=== PATIENT | male | born 1980 | race Caucasian/White ===

== ENCOUNTER 2016-06-11 18:11 | Emergency (ER) | payer MEDICARE ==
--- NOTE | 2016-06-11 18:33 | ERPHSYRPT ---
- History of Present Illness Time Seen by Provider: 06/11/16 18:27 Source: patient Exam Limitations: no limitations Patient Subjective Stated Complaint: PT REPORTS RASH BEGINNING 2 DAYS AGO- REPORTS ITCHING-DENIES RASH IS SPREADING-DENIES SOB Triage Nursing Assessment: PT PINK WARM ET DRY-RASH NOTED-NO ITCHING NOTED DURING TRIAGE Physician History: The patient is a 36-year-old male with his girlfriend complaining that a rash has developed on the left side of his neck 2 days ago. He says he was at a friend's house with a have a lot of cats and dogs in the house and shortly after leaving this itchy rash began. He took 2 Benadryl's last night to control the itching. He denies shortness of breath. He transfer text Timing/Duration: yesterday Quality: itchy Severity: mild Location: other (neck) Possible Causes: exposure to allergen Modifying Factors: Improves With: antihistamine Associated Symptoms: rash, No difficulty breathing, No hives Allergies/Adverse Reactions: penicillin G Allergy (Intermediate, Verified 06/11/16 18:18) prednisone Allergy (Intermediate, Verified 06/11/16 18:18) Home Medications: Omeprazole 20 MG [Prilosec 20 mg] 40 mg DAILY 07/14/15 [History] Hx Tetanus, Diphtheria Vaccination/Date Given: Yes (2013) Hx Influenza Vaccination/Date Given: No Hx Pneumococcal Vaccination/Date Given: No Immunizations Up to Date: Yes - Review of Systems Constitutional: No Fever, No Chills Eyes: No Symptoms Ears, Nose, & Throat: No Symptoms Respiratory: No Cough, No Dyspnea Cardiac: No Chest Pain, No Edema, No Syncope Abdominal/Gastrointestinal: No Abdominal Pain, No Nausea, No Vomiting, No Diarrhea Genitourinary Symptoms: No Dysuria Musculoskeletal: No Back Pain, No Neck Pain Skin: Rash Neurological: No Dizziness, No Focal Weakness, No Sensory Changes Psychological: No Symptoms Endocrine: No Symptoms Hematologic/Lymphatic: No Symptoms Immunological/Allergic: No Symptoms All Other Systems: Reviewed and Negative - Past Medical History Pertinent Past Medical History: Yes Neurological History: No Pertinent History ENT History: No Pertinent History Cardiac History: No Pertinent History Respiratory History: COPD Endocrine Medical History: No Pertinent History Musculoskeletal History: Other GI Medical History: GERD History: No Pertinent History Psycho-Social History: Depression Male Reproductive Disorders: No Pertinent History - Past Surgical History Past Surgical History: Yes Neuro Surgical History: No Pertinent History Cardiac: No Pertinent History Respiratory: No Pertinent History Gastrointestinal: Cholecystectomy Genitourinary: No Pertinent History Musculoskeletal: No Pertinent History Male Surgical History: No Pertinent History Other Surgical History: DENTAL EXTRACTION. Esophageal dilatation. GERD - Social History Smoking Status: Former smoker Exposure to second hand smoke: Yes Alcohol Use: None Drug Use: none Patient Lives Alone: No Significant Family History: no pertinent family hx - Nursing Vital Signs Nursing Vital Signs: Initial Vital Signs Temperature 98.7 F Temperature Source Oral Pulse Rate 66 Respiratory Rate 22 Blood Pressure 154/88 Pain Intensity 0 - Physical Exam General Appearance: no apparent distress, alert Eye Exam: PERRL/EOMI, eyes nml inspection Ears, Nose, Throat Exam: normal ENT inspection, pharynx normal, moist mucous membranes Neck Exam: normal inspection, non-tender, supple, full range of motion Respiratory Exam: normal breath sounds, lungs clear, No respiratory distress Cardiovascular Exam: regular rate/rhythm, normal heart sounds Gastrointestinal/Abdomen Exam: soft, mass, No tenderness Rectal Exam: not done Back Exam: normal inspection, normal range of motion, No CVA tenderness, No vertebral tenderness Extremity Exam: normal inspection, normal range of motion Neurologic Exam: alert, oriented x 3, cooperative, normal mood/affect, sensation nml, No motor deficits Skin Exam: rash (left side of neck. mild) SpO2 Interpretation: normal SpO2: 100 Oxygen Delivery: Room Air - Departure Time of Disposition: 18:31 Departure Disposition: Home Clinical Impression: Rash Condition: Stable Critical Care Time: No Additional Instructions: Follow up with PCP in 2 to 3 days if no improvement. Prescriptions: Hydroxyzine HCl 1 tab PO Q6H PRN PRN #12 tablet PRN Reason: Redness/Irritation
[2016-06-11 18:39] VITALS: BP 141/70; PULSE 70; O2SAT 99
== END 2016-06-11 18:38 | disposition home or self-care (01) ==
LOC: ED 18:11
DX: R21 Rash and other nonspecific skin eruption (principal)
CPT/HCPCS: 99282

== ENCOUNTER 2017-11-27 17:59 | Emergency (ER) | payer MEDICARE ==
[2017-11-27 18:16] VITALS: BP 146/90; PULSE 84
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
[2017-11-27] MEDS ORDERED: ULTRAM 50 MG PO ONE (19:50)
[2017-11-27] MEDS ORDERED: ULTRAM 50 MG ONE (19:58)
[2017-11-27 20:13] VITALS: O2SAT 98
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
== END 2017-11-27 20:17 | disposition home or self-care (01) ==
LOC: ED 17:59
DX: S80.01XA Contusion of right knee, initial encounter (principal); S40.011A Contusion of right shoulder, initial encounter; V89.2XXA Person injured in unspecified motor-vehicle accident, traffic, initial encounter
CPT/HCPCS: 73030; 73562; 99284; A9270-GY

== ENCOUNTER 2019-11-01 19:27 | Emergency (ER) | payer MEDICARE ==
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
[2019-11-01] MEDS ORDERED: Pepcid 20 MG VIAL IV ONE ×2 (20:15→20:17)
[2019-11-01] MEDS ORDERED: BENADRYL 50 MG/ML IV ONE (20:15)
[2019-11-01] MEDS ORDERED: BENADRYL 50 MG/ML ONE (20:17)
[2019-11-01 20:33] VITALS: BP 95/66; PULSE 72; O2SAT 96
== END 2019-11-01 20:58 | disposition home or self-care (01) ==
LOC: ED 19:27
DX: T78.40XA Allergy, unspecified, initial encounter (principal); J44.9 Chronic obstructive pulmonary disease, unspecified; K21.9 Gastro-esophageal reflux disease without esophagitis; F32.9 Major depressive disorder, single episode, unspecified; X58.XXXA Exposure to other specified factors, initial encounter; Y93.89 Activity, other specified; Y92.9 Unspecified place or not applicable
CPT/HCPCS: 96374; 96375; 99284; J1200

== ENCOUNTER 2024-09-02 16:03 | Emergency (ER) | payer MEDICARE ==
[2024-09-02 16:16] VITALS: BP 126/84; PULSE 87; TEMP 98.2; O2SAT 98
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
== END 2024-09-02 16:59 | disposition home or self-care (01) ==
LOC: ED 16:03
DX: T23.231A Burn of second degree of multiple right fingers (nail), not including thumb, initial encounter (principal); X19.XXXA Contact with other heat and hot substances, initial encounter; Z79.899 Other long term (current) drug therapy
CPT/HCPCS: 99281; 99282